=== PATIENT | female | born 1990 | race Caucasian/White ===

== ENCOUNTER 2019-12-26 11:21 | Emergency (ER) | payer MEDICAID ==
[~2019-12-26] VITALS: Ht 172.7 cm; Wt 101.2 kg
[2019-12-26 11:37] VITALS: BP 1255/59; Ht 172.7 cm; Wt 101.2 kg
== END 2019-12-26 13:08 | disposition home or self-care (01) ==
LOC: ED 11:21
DX: M54.31 Sciatica, right side (principal)
CPT/HCPCS: J1885

== ENCOUNTER 2020-04-30 20:26 | Emergency (ER) | payer MEDICAID ==
[~2020-04-30] VITALS: Ht 170.2 cm; Wt 103.0 kg
[2020-04-30 20:49] VITALS: Ht 170.2 cm; Wt 103.0 kg
[2020-04-30 22:31] LABS: CALCIUM 8.9 mg/dL (8.5-10.1); CARBON DIOXIDE 25.8 mmol/L (21-32); CHLORIDE SERUM 102 mmol/L (98-107); CREATININE SERUM 0.8 mg/dL (0.6-1.0); GFR1 > 60 mL/min; GLUCOSE SERUM 105 mg/dL (74-106); POTASSIUM SERUM 3.9 mmol/L (3.5-5.1); SODIUM SERUM 137 mmol/L (136-145)
[2020-04-30 22:36] LABS: BASOPHIL % 0.4 % (0-2); PLATELET COUNT 272 x10^3mcL (130-400)
[2020-04-30 22:40] LABS: ALBUMIN 3.5 g/dL (3.4-5.0); ALKALINE PHOSPHATASE 57 U/L (46-116); ALT/SGPT 21 U/L (14-59); AMYLASE 30 U/L (25-115); AST/SGOT 10 U/L (15-37); BILIRUBIN TOTAL 0.21 mg/dL (0.20-1.00); LIPASE 107 IU/L (73-393); TOTAL PROTEIN, SERUM 7.4 g/dL (6.4-8.2)
[2020-05-01 00:17] LABS: UA SPECIFIC GRAVITY >=1.030 (1.005-1.035); microscopic required? YES; urine erythrocyte NEGATIVE (NEGATIVE)
[2020-05-01 01:34] VITALS: BP 101/50
== END 2020-05-01 01:20 | disposition home or self-care (01) ==
LOC: ED 20:26
PROVIDERS: Emergency Medicine
DX: N39.0 Urinary tract infection, site not specified (principal); N76.0 Acute vaginitis
CPT/HCPCS: 87491; 87591

== ENCOUNTER 2020-06-08 12:14 | Emergency (ER) | payer MEDICAID | END 2020-06-08 15:25 | disposition left against medical advice (07) | LOC: ED 12:14 | DX: O20.8 Other hemorrhage in early pregnancy (principal); R10.30 Lower abdominal pain, unspecified; M54.5 Low back pain; Z3A.09 9 weeks gestation of pregnancy ==